=== PATIENT | female | born 1975 | race Two or more races ===

== ENCOUNTER 2019-04-13 08:09 | Outpatient (CLI) | payer OTHER | END 2019-04-13 14:41 | disposition home or self-care (01) | LOC: LAB 08:09 | DX: R10.2 Pelvic and perineal pain (principal); R79.89 Other specified abnormal findings of blood chemistry; Z32.01 Encounter for pregnancy test, result positive; D64.89 Other specified anemias; R79.1 Abnormal coagulation profile; N39.0 Urinary tract infection, site not specified ==